=== PATIENT | male | born 1970 | race Caucasian/White ===

== ENCOUNTER 2017-02-03 21:07 | Emergency (ER) | payer OTHER ==
[2017-02-03 22:18] VITALS: BP 159/85; PULSE 92; TEMP 98.4; BMI 27.1
--- NOTE | 2017-02-04 00:33 | PDOC ---
History of Present Illness - General Chief Complaint: Injury Stated Complaint: INJURY Time Seen by Provider: 02/03/17 22:28 Past History - Past Medical History Allergies/Adverse Reactions: Allergies Allergy/AdvReac Type Severity Reaction Status Date / Time No Known Allergies Allergy Verified 02/03/17 21:13 Home Medications: Ambulatory Orders Ibuprofen 800 mg PO TID #30 tablet 02/04/17 Oxycodone HCl/Acetaminophen [Percocet 5-325 mg Tablet] 12 tab PO Q6H #20 tablet MDD 4 02/04/17 COPD: No - Suicide/Smoking/Psychosocial Hx Smoking History: Never smoked *Physical Exam - Vital Signs Last Vital Signs Temp Pulse Resp BP Pulse Ox 98.4 F 92 H 18 159/85 97 02/03/17 21:13 02/03/17 21:13 02/03/17 21:13 02/03/17 21:13 02/03/17 21:13 *DC/Admit/Observation/Transfer Diagnosis at time of Disposition: Fracture of distal fibula Qualifiers: Encounter type: initial encounter Fracture type: closed Fracture morphology: unspecified fracture morphology Laterality: right Qualified Code(s): S82.831A - Other fracture of upper and lower end of right fibula, initial encounter for closed fracture - Discharge Dispostion Disposition: HOME Condition at time of disposition: Stable Admit: No - Prescriptions Prescriptions: Ibuprofen 800 mg PO TID #30 tablet Oxycodone HCl/Acetaminophen [Percocet 5-325 mg Tablet] 12 tab PO Q6H #20 tablet MDD 4 - Referrals Referrals: Masoud Ash MD [Primary Care Provider] - Farooq Bae MD [Staff Physician] - - Patient Instructions Printed Discharge Instructions: DI for Shinbone Fracture Additional Instructions: You have a broken bone in your lower leg called the fibula. It was splinted today. Please leave the splint on until orthopedics. Your given a referral for Dr. Bae. Please use the crutches at all time and do not put any weight on the foot. You may take ibuprofen 800 mg 3 times a day as needed for pain. Your also prescribed Percocet as needed for pain. Do not drive after taking this medication as it may make you sleepy. Please ice and elevate the foot while at home resting. Again please follow-up with Dr. Bae tomorrow. Return to the emergency department if you have worsening pain, worsening swelling, weakness in the leg or foot, numbness or tingling of the foot, or any changes in her symptoms. Tienes un hueso roto en la parte inferior de la pierna llamado peron. Fue ferulizado hoy. Por favor, deje la frula hasta la [facility]. Le dieron cole referencia para el Dr. Bae. Por favor use las muletas en todo momento y no ponga ningn peso en el pie. Puede harleen ibuprofeno 800 mg 3 veces al da segn sea necesario para el dolor. Tambin le recetaron Percocet segn sea necesario para el dolor. No conduzca despus de harleen daina medicamento ya que puede causarle sueo. Por favor, hielo y eleve el pie mientras descansa en casa. De nuevo, por favor suze un seguimiento con el Dr. Catalino branham. Regrese al servicio de urgencias si tiene un empeoramiento del dolor, empeoramiento de la hinchazn, debilidad en la pierna o el pie, entumecimiento u hormigueo en el pie, o cualquier cambio en debi sntomas. - Post Discharge Activity Forms/Work/School Notes: Back to Work
== END 2017-02-04 01:09 | disposition home or self-care (01) ==
LOC: JER 21:07 → JERFT 21:07
PROC: 2W3QX1Z Immobilization of Right Lower Leg using Splint (ICD-10-PCS; principal; 2017-02-03)
DX: S82.831A Other fracture of upper and lower end of right fibula, initial encounter for closed fracture (principal); X58.XXXA Exposure to other specified factors, initial encounter; Y93.9 Activity, unspecified; Y92.9 Unspecified place or not applicable
CPT/HCPCS: 29515; 73590-TC-RT; 73610-TC-RT; 73630-TC-RT; 99281-25

== ENCOUNTER 2020-03-11 10:17 | Emergency (ER) | payer OTHER ==
[2020-03-11 10:31] VITALS: BP 158/68; PULSE 101; TEMP 98; BMI 25.7
== END 2020-03-11 11:00 | disposition left against medical advice (07) ==
LOC: JER 10:17
DX: U07.1 COVID-19 (principal)
CPT/HCPCS: 87426; 99283-25

== ENCOUNTER 2020-03-20 10:24 | Emergency (ER) | payer OTHER ==
[2020-03-20 10:30] VITALS: BP 142/85; PULSE 89; TEMP 98.6; BMI 26.4
== END 2020-03-20 11:23 | disposition home or self-care (01) ==
LOC: JER 10:24
DX: B34.9 Viral infection, unspecified (principal); Z11.52 Encounter for screening for COVID-19
CPT/HCPCS: 99283-25